=== PATIENT | male | born 1970 | race Caucasian/White ===

== ENCOUNTER 2022-01-13 15:59 | Emergency (ER) | payer BC ==
[~2022-01-13] VITALS: Ht 182.9 cm; Wt 92.1 kg
[2022-01-13 16:00] VITALS: BP_SYST 144
--- NOTE | 2022-01-13 16:02 | NUR ---
Patient triaged and placed in waiting room. VSS and patient appears in no acute distress at this time. Accompanied by SELF, awaiting available bed, and MD notified of need for MSE.
--- NOTE | 2022-01-13 17:01 | NUR ---
DR FISCHER OUT TO TRIAGE ROOM FOR EVALUATION
--- NOTE | 2022-01-13 17:23 | NUR ---
Patient does not wish to proceed with medical care recommended by DR FISCHER. Patient given information related to possible complications, up to and including , which could occur as a result of leaving hospital at this time. Patient verbalizes understanding of risks involved leaving against medical advice. Patient has signed AMA form.
== END 2022-01-13 17:23 | disposition left against medical advice (07) ==
LOC: SED 15:59
DX: R51.9 Headache, unspecified (principal); I10 Essential (primary) hypertension; Z79.899 Other long term (current) drug therapy
CPT/HCPCS: 99283